=== PATIENT | female | born 1995 | race Hispanic/Latino ===

== ENCOUNTER 2024-04-06 06:57 | Day surgery (SDC) | payer OTHER, SELFPAY ==
[2024-04-06 07:23] VITALS: BMI 39.1
[2024-04-06] MEDS ORDERED: Acetaminophen 500 MG TAB PO PRN (07:42)
[2024-04-06 08:14] LABS: #Basophils 0.01 10x3/uL (0.0-0.2); #Eosinophils 0.02 10x3/uL (0.0-0.5); #Neutrophils 8.43 10x3/uL (1.5-8.4); %Basophils 0.1 % (0.0-2.0); %Eosinophils 0.2 % (0.0-6.0); %Lymphocytes 16.9 % (18.0-47.0); %Monocytes 6.3 % (0.0-10.0); %Neutrophils 75.6 % (40.0-75.0); Hematocrit 36.2 % (34.9-44.5); Mean Corpuscular HGB CONC 33.1 g/dL (32.0-36.0); Mean Corpuscular Hemoglobin 29.7 pg (27.0-33.0); Mean Corpuscular Volume 89.6 fL (81.6-98.3); Platelet Count 225 10x3/uL (150-450); RBC Distribution Width 13.3 % (11.5-14.5); Red Blood Cell (RBC) Count 4.04 10x6/uL (3.90-5.03); White Blood Cell (WBC) Count 11.1 10x3/uL (3.5-10.5)
[2024-04-06 08:22] LABS: ALT (SGPT) 13 U/L (8-55); AST (SGOT) 15 U/L (5-34); Alkaline Phosphatase 50 U/L (40-110); Anion Gap 15 mmol/L (10-20); BUN (Urea Nitrogen) 4 mg/dL (7.0-18.7); Bilirubin, Total 0.2 mg/dL (0.2-1.2); Calc. Creatinine Clearance 233 mL/min (70-130); Carbon Dioxide 19 mmol/L (22-29); Chloride 108 mmol/L (98-107); Estimated GFR 126; Glucose 98 mg/dL (70-105); Sodium 138 mmol/L (136-145)
[2024-04-06 08:52] LABS: Creatinine, Urine 51.11 mg/dL (47-110); Protein, Urine Random Quant Less than 10 mg/dL (1-14)
== END 2024-04-06 10:40 ==
LOC: CSHLD/OP 06:57
PROVIDERS: ATTEND Student in an Organized Health Care Education/Training Program
DX: O99.891 Other specified diseases and conditions complicating pregnancy (principal); R03.0 Elevated blood-pressure reading, without diagnosis of hypertension; Z3A.26 26 weeks gestation of pregnancy; Z79.899 Other long term (current) drug therapy
CPT/HCPCS: 36415; 80053; 82570; 84156; 85025; 99283

== ENCOUNTER 2024-06-27 00:13 | Day surgery (SDC) | payer BC ==
[2024-06-27 01:05] VITALS: BMI 40.7
[2024-06-27] MEDS ORDERED: hydrALAZINE 20 MG/ML VIAL SLOW IVP PRN (01:17)
[2024-06-27] MEDS: Acetaminophen 500 MG TAB PO SCH (01:47)
[2024-06-27 01:55] LABS: Protein, Urine Random Quant Less than 10 mg/dL (1-14)
[2024-06-27 02:33] LABS: #Basophils Less than 0.03 10x3/uL (0.0-0.2); #Eosinophils Less than 0.03 10x3/uL (0.0-0.5); #Monocytes 0.92 10x3/uL (0.0-1.1); #Neutrophils 8.39 10x3/uL (1.5-8.4); %Basophils 0.2 % (0.0-2.0); %Eosinophils 0.2 % (0.0-6.0); %Lymphocytes 21.4 % (18.0-47.0); %Monocytes 7.7 % (0.0-10.0); Hematocrit 38.8 % (34.9-44.5); Hemoglobin 12.8 g/dL (12.0-15.5); Platelet Count 241 10x3/uL (150-450); RBC Distribution Width 13.9 % (11.5-14.5); Red Blood Cell (RBC) Count 4.41 10x6/uL (3.90-5.03); White Blood Cell (WBC) Count 11.97 10x3/uL (3.5-10.5)
[2024-06-27 02:46] LABS: ALT (SGPT) 17 U/L (8-55); AST (SGOT) 14 U/L (5-34); Albumin 3.3 g/dL (3.5-5.0); Alkaline Phosphatase 110 U/L (40-110); Anion Gap 15 mmol/L (10-20); BUN (Urea Nitrogen) 8 mg/dL (7.0-18.7); Bilirubin, Total 0.4 mg/dL (0.2-1.2); Calc. Creatinine Clearance 239 mL/min (70-130); Calcium 9.5 mg/dL (7.8-10.44); Carbon Dioxide 18 mmol/L (22-29); Chloride 108 mmol/L (98-107); Estimated GFR 125; Globulin 3.8 g/dL (2.4-3.5); Glucose 82 mg/dL (70-105); Protein, Total 7.1 g/dL (6.0-8.3); Sodium 137 mmol/L (136-145)
== END 2024-06-27 02:55 | disposition home or self-care (01) ==
LOC: CSHERS 00:13 → CSHLD/OP 00:35
PROVIDERS: ATTEND Student in an Organized Health Care Education/Training Program
DX: O10.913 Unspecified pre-existing hypertension complicating pregnancy, third trimester (principal); O99.343 Other mental disorders complicating pregnancy, third trimester; F41.9 Anxiety disorder, unspecified; O41.03X0 Oligohydramnios, third trimester, not applicable or unspecified; O14.13 Severe pre-eclampsia, third trimester; O99.820 Streptococcus B carrier state complicating pregnancy; O36.0130 Maternal care for anti-D [Rh] antibodies, third trimester, not applicable or unspecified; Z67.30 Type AB blood, Rh positive; Z3A.37 37 weeks gestation of pregnancy
CPT/HCPCS: 80053; 82570; 84156; 85025; 99284

== ENCOUNTER 2024-06-28 17:10 | Inpatient (IN) | payer BC ==
[~2024-06-28 17:10] MED LIST: Bupivacaine 0.25% HCL 30 ML VIAL ONE
[2024-06-28 17:31] VITALS: BMI 40.7
[2024-06-28] MEDS ORDERED: Ibuprofen 800 MG TAB PO PRN (18:15)
[2024-06-28] MEDS ORDERED: Carboprost 250 MCG/ML AMP IM PRN (18:15)
[2024-06-28] MEDS ORDERED: Zolpidem Tartrate 5 MG TAB PO PRN (18:15)
[2024-06-28] MEDS ORDERED: Ondansetron PF 4 MG/2 ML Vial IVP PRN (18:15)
[2024-06-28] MEDS ORDERED: Oxytocin 30 units/NS 500 ML 500 ML IV SCH (18:15)
[2024-06-28] MEDS ORDERED: Promethazine HCl 25 MG/ML VIAL IM PRN (18:15)
[2024-06-28] MEDS ORDERED: Diphenoxylate HCl/Atropine Tablet PO PRN (18:15)
[2024-06-28] MEDS ORDERED: fentaNYL 50 mcg/mL 1 mL Vial SLOW IVP PRN (18:15)
[2024-06-28] MEDS ORDERED: Lidocaine 1% (PF) 30 ML VIAL SC PRN (18:15)
[2024-06-28] MEDS ORDERED: HYDROcodone/Acetaminophen 5/325 mg Tablet PO PRN (18:15)
[2024-06-28] MEDS ORDERED: Lactated Ringer's 1,000 ML IV SCH (18:15)
[2024-06-28] MEDS ORDERED: hydrALAZINE 20 MG/ML VIAL SLOW IVP PRN (18:15)
[2024-06-28 19:00] LABS: Hematocrit 36.9 % (34.9-44.5); Hemoglobin 12.5 g/dL (12.0-15.5); Mean Corpuscular HGB CONC 33.9 g/dL (32.0-36.0); Mean Corpuscular Hemoglobin 29.5 pg (27.0-33.0); Platelet Count 234 10x3/uL (150-450); RBC Distribution Width 14.2 % (11.5-14.5); Red Blood Cell (RBC) Count 4.24 10x6/uL (3.90-5.03); White Blood Cell (WBC) Count 10.18 10x3/uL (3.5-10.5)
[2024-06-28 19:33] LABS: ALT (SGPT) 17 U/L (8-55); AST (SGOT) 17 U/L (5-34); Albumin 3.1 g/dL (3.5-5.0); Alkaline Phosphatase 104 U/L (40-110); Anion Gap 14 mmol/L (10-20); BUN (Urea Nitrogen) 8 mg/dL (7.0-18.7); Bilirubin, Total 0.5 mg/dL (0.2-1.2); Calc. Creatinine Clearance 239 mL/min (70-130); Calcium 8.8 mg/dL (7.8-10.44); Carbon Dioxide 18 mmol/L (22-29); Chloride 106 mmol/L (98-107); Estimated GFR 125; Globulin 3.8 g/dL (2.4-3.5); Glucose 84 mg/dL (70-105); Potassium 4.2 mmol/L (3.5-5.1); Protein, Total 6.9 g/dL (6.0-8.3); Sodium 134 mmol/L (136-145)
[2024-06-28 19:42] LABS: Syphilis Antibody Nonreactive (Nonreactive); Syphilis Antibody Index 0.06 S/CO (<1.00 Non-Reactive)
[2024-06-28 19:43] LABS: HBsAg Index 0.23 S/CO (0-0.99); Hep B Surf Ag - L&D Non-Reactive S/CO (NonReactive)
[2024-06-28] MEDS: Misoprostol 100 MCG TAB VAG SCH (22:25)
[2024-06-28] MEDS: Acetaminophen 500 MG TAB PO PRN (22:36)
[2024-06-29] MEDS: Penicillin G Potassium 5 MILL.UNITS in Sodium Chloride 0.9% 100 ML IVPB SCH (14:14)
[2024-06-29] MEDS ORDERED: Promethazine HCl 25 MG/ML VIAL IM PRN (14:59)
[2024-06-29] MEDS ORDERED: ePHEDrine Sulfate 50 MG/10 ML VIAL SLOW IVP PRN (14:59)
[2024-06-29] MEDS ORDERED: Acetaminophen 325 MG TAB PO PRN (14:59)
[2024-06-29] MEDS ORDERED: Moisturizing Cream (Eucerin) 113 GM JAR TOP PRN (14:59)
[2024-06-29] MEDS ORDERED: diphenhydrAMINE 50 MG/ML VIAL IVP PRN (14:59)
[2024-06-29] MEDS ORDERED: Lactated Ringer's 500 ML IV PRN (14:59)
[2024-06-29] MEDS ORDERED: Naloxone HCl 0.4 mg/ml Vial IVP PRN ×2 (14:59)
[2024-06-29] MEDS ORDERED: Ondansetron PF 4 MG/2 ML Vial IVP PRN (14:59)
[2024-06-29] MEDS ORDERED: Communication Order-Pharmacy FS SCH (15:00)
[2024-06-29] MEDS ORDERED: fentaNYL 2 mcg/Ropivacaine 0.2% Epidural 100 ML CADD EPIDURAL SCH (15:00)
[2024-06-29] MEDS: Oxytocin 30 units/NS 500 ML 500 ML IV SCH (15:15)
[2024-06-29] MEDS: Penicillin G 2.5 MILL.units 2.5 MILL.UNITS in Premix 1 BAG IVPB SCH (17:47)
[2024-06-29] MEDS: Misoprostol 200 MCG TAB PR PRN (18:17)
[2024-06-29] MEDS: Methylergonovine 0.2 MG/ML VIAL IM PRN (18:17)
[2024-06-29] MEDS ORDERED: hydrALAZINE 20 MG/ML VIAL SLOW IVP PRN (18:23)
[2024-06-29] MEDS ORDERED: Milk Of Magnesia 30 ML UDCUP PO PRN (18:23)
[2024-06-29] MEDS ORDERED: Bisacodyl 10 MG SUPP PR PRN (18:23)
[2024-06-29 18:37] LABS: Analyzer IN Cardio CS NICU; Critical Notified By: clumpkins rt; RapidComm Collect By LD RN
[2024-06-29 18:38] LABS: Analyzer IN Cardio CS NICU; Critical Notified By: clumpkins rt; RapidComm Collect By LD RN; pH (Cord, venous) 7.375 (7.250-7.350)
[2024-06-29] MEDS: Docusate 100 MG CAP PO SCH (21:30)
[2024-06-29] MEDS: Ibuprofen 800 MG TAB PO SCH (21:30)
[2024-06-30] MEDS: Ferrous Sulfate 325 MG TAB PO SCH (14:15)
[2024-07-01] MEDS: fentaNYL/Ropivacaine Epidural 100 ML ONE (07:33)
[2024-07-01] MEDS: Boostrix 0.5 ML (Tdap) VIAL (>/=7 yrs of age) IM ONE (07:33)
[2024-07-01] MEDS: Penicillin G Potassium 5 MILL.UNITS VIAL ONE (07:33)
[2024-07-01] MEDS: hydrALAZINE 20 MG/ML VIAL SLOW IVP SCH (08:22)
[2024-07-01] MEDS: busPIRone HCl 5 MG TAB PO SCH (08:54)
[2024-07-01] MEDS ORDERED: Calcium Gluc 4.6 MEQ/10 ML (100 MG/ML) SLOW IVP PRN (09:15)
[2024-07-01] MEDS ORDERED: Lorazepam 2 MG/ML VIAL SLOW IVP PRN (09:15)
[2024-07-01] MEDS: Magnesium Sulfate 20 gm/500 ml 20 GM/500 ML BAG IVPB SCH (10:15)
[2024-07-01] MEDS: NIFEdipine XL 30 MG ER.TAB PO SCH ×2 (10:29→20:08)
[2024-07-01] MEDS: Lactated Ringer's 1,000 ML IV SCH (10:33)
[2024-07-01 13:44] LABS: #Basophils Less than 0.03 10x3/uL (0.0-0.2); #Eosinophils 0.04 10x3/uL (0.0-0.5); #Monocytes 0.52 10x3/uL (0.0-1.1); #Neutrophils 6.34 10x3/uL (1.5-8.4); %Basophils 0.2 % (0.0-2.0); %Eosinophils 0.5 % (0.0-6.0); %Lymphocytes 17.5 % (18.0-47.0); %Monocytes 6.2 % (0.0-10.0); Hematocrit 38.3 % (34.9-44.5); Hemoglobin 12.5 g/dL (12.0-15.5); Mean Corpuscular HGB CONC 32.6 g/dL (32.0-36.0); Mean Corpuscular Hemoglobin 28.8 pg (27.0-33.0); Mean Corpuscular Volume 88.2 fL (81.6-98.3); Mean Platelet Volume 10.6 fL (7.4-10.4); Platelet Count 240 10x3/uL (150-450); RBC Distribution Width 14.1 % (11.5-14.5); Red Blood Cell (RBC) Count 4.34 10x6/uL (3.90-5.03); White Blood Cell (WBC) Count 8.45 10x3/uL (3.5-10.5)
[2024-07-01 13:59] LABS: ALT (SGPT) 21 U/L (8-55); AST (SGOT) 23 U/L (5-34); Albumin 2.8 g/dL (3.5-5.0); Alkaline Phosphatase 77 U/L (40-110); Anion Gap 16 mmol/L (10-20); BUN (Urea Nitrogen) 5 mg/dL (7.0-18.7); Bilirubin, Total 0.4 mg/dL (0.2-1.2); Calc. Creatinine Clearance 247 mL/min (70-130); Calcium 8.4 mg/dL (7.8-10.44); Carbon Dioxide 19 mmol/L (22-29); Chloride 109 mmol/L (98-107); Estimated GFR 126; Glucose 112 mg/dL (70-105); Potassium 3.7 mmol/L (3.5-5.1); Protein, Total 6.8 g/dL (6.0-8.3); Sodium 140 mmol/L (136-145)
[2024-07-01 19:51] LABS: Magnesium 4.5 mg/dL (1.6-2.6)
[2024-07-01] MEDS: NIFEdipine XL 60 MG ER.TAB PO SCH (20:08)
[2024-07-01 22:03] LABS: Troponin I Less than 0.010 ng/mL (< 0.028)
[2024-07-01] MEDS: Lorazepam 2 MG/ML VIAL SLOW IVP SCH (22:05)
[2024-07-02] MEDS: NIFEdipine XL 30 MG ER.TAB PO SCH (09:23)
[2024-07-02] MEDS: Labetalol HCl 200 MG TAB PO SCH (15:59)
[2024-07-02] MEDS: NIFEdipine 10 MG CAP PO SCH (21:11)
[2024-07-03] MEDS: NIFEdipine XL 90 MG ER.TAB PO SCH (08:20)
[2024-07-03 16:09] VITALS: BP 126/89; TEMP 97.5
== END 2024-07-03 17:45 | disposition home or self-care (01) | DRG 807 ==
LOC: OBSVTOIN 17:10 → CSHLD 17:10 → CSHPP 06-29 20:25 → CSHLD 07-01 09:46 → CSHPED 07-02 11:45
PROVIDERS: ADMIT Student in an Organized Health Care Education/Training Program; ATTEND Student in an Organized Health Care Education/Training Program
PROC: 3E0P7VZ Introduction of Hormone into Female Reproductive, Via Natural or Artificial Opening (ICD-10-PCS; 2024-06-28)
PROC: 10907ZC Drainage of Amniotic Fluid, Therapeutic from Products of Conception, Via Natural or Artificial Opening (ICD-10-PCS; 2024-06-28)
PROC: 10E0XZZ Delivery of Products of Conception, External Approach (ICD-10-PCS; principal; 2024-06-29)
DX: O14.14 Severe pre-eclampsia complicating childbirth (principal); Z37.0 Single live birth; Z3A.38 38 weeks gestation of pregnancy; O99.824 Streptococcus B carrier state complicating childbirth; O99.214 Obesity complicating childbirth; E66.813 Obesity, class 3; O99.344 Other mental disorders complicating childbirth
CPT/HCPCS: 36415; 51702; 80053; 82805; 83735; 84484; 85025; 85027; 86780; 86850; 86900; 86901; 87340; 93005; 93010; J0360; J0665; J2060; J2210; J2540; J2590; J3475; J7120

== ENCOUNTER 2025-04-27 13:59 | Inpatient (IN) | payer BC ==
[2025-04-27 14:57] LABS: Glucose, Urine (Dipstick) Normal (Negative); Leukocyte Negative (Negative); Protein, Urine (Dipstick) 30 mg/dl (Neg-Trace); Specific Gravity, Urine 1.015 (1.005-1.030)
[2025-04-27] MEDS ORDERED: hydrALAZINE 20 MG/ML VIAL SLOW IVP PRN ×2 (14:58→15:20)
[2025-04-27 15:00] LABS: Fetal Membranes Rupture RUPTURE DETECTED (No Rupture)
[2025-04-27 15:05] LABS: Bacteria/HPF 2+ HPF (None Seen); CAUTI Indications for Culture Pregnancy
[2025-04-27 15:07] LABS: Urine Culture Reflex Yes Yes
[2025-04-27] MEDS ORDERED: Tranexamic Acid 1,000 MG/10 ML VIAL IVP PRN (15:20)
[2025-04-27] MEDS ORDERED: Lidocaine 1% (PF) 30 ML VIAL SC PRN (15:20)
[2025-04-27] MEDS ORDERED: Carboprost 250 MCG/ML AMP IM PRN (15:20)
[2025-04-27] MEDS ORDERED: Ondansetron PF 4 MG/2 ML Vial IVP PRN (15:20)
[2025-04-27] MEDS ORDERED: Diphenoxylate HCl/Atropine Tablet PO PRN (15:20)
[2025-04-27] MEDS ORDERED: Oxytocin 30 units/NS 500 ML 500 ML IV SCH ×2 (15:30)
[2025-04-27 16:21] LABS: Hematocrit 34.6 % (34.9-44.5); Hemoglobin 12.0 g/dL (12.0-15.5); Mean Corpuscular Hemoglobin 30.9 pg (27.0-33.0); Mean Corpuscular Volume 89.2 fL (81.6-98.3); Platelet Count 202 10x3/uL (150-450); Red Blood Cell (RBC) Count 3.88 10x6/uL (3.90-5.03); White Blood Cell (WBC) Count 10.23 10x3/uL (3.5-10.5)
[2025-04-27] MEDS: Penicillin G Potassium 5 MILL.UNITS in Sodium Chloride 0.9% 100 ML IVPB SCH (16:27)
[2025-04-27 16:38] VITALS: BMI 40.7
[2025-04-27 16:54] LABS: Hep B Surf Ag - L&D Non-Reactive S/CO (NonReactive)
[2025-04-27 16:55] LABS: Syphilis Antibody Index 0.08 S/CO (<1.00 Non-Reactive)
[2025-04-27] MEDS: Penicillin G 2.5 MILL.units 2.5 MILL.UNITS in Premix 1 BAG IVPB SCH (21:17)
[2025-04-27] MEDS: Acetaminophen 500 MG TAB PO SCH (21:33)
[2025-04-28] MEDS: fentaNYL/Ropivacaine Epidural 100 ML ONE (03:22)
[2025-04-28] MEDS ORDERED: Ondansetron PF 4 MG/2 ML Vial IVP PRN ×2 (03:29→04:33)
[2025-04-28] MEDS ORDERED: diphenhydrAMINE 50 MG/ML VIAL IVP PRN (03:29)
[2025-04-28] MEDS ORDERED: fentaNYL 2 mcg/Ropivacaine 0.2% Epidural 100 ML CADD EPIDURAL SCH (03:30)
[2025-04-28] MEDS ORDERED: Communication Order-Pharmacy FS SCH (03:30)
[2025-04-28] MEDS ORDERED: Methylergonovine 0.2 MG/ML VIAL IM PRN (04:33)
[2025-04-28] MEDS ORDERED: Milk Of Magnesia 30 ML UDCUP PO PRN (04:33)
[2025-04-28] MEDS ORDERED: Bisacodyl 10 MG SUPP PR PRN (04:33)
[2025-04-28] MEDS ORDERED: Preparation H Ointment 28 GM TUBE PR PRN (04:33)
[2025-04-28] MEDS ORDERED: hydrALAZINE 20 MG/ML VIAL SLOW IVP PRN (04:33)
[2025-04-28] MEDS ORDERED: Lanolin Ointment 7 GM TUBE TOP PRN (04:33)
[2025-04-28] MEDS ORDERED: diphenhydrAMINE 25 MG CAP PO PRN (04:33)
[2025-04-28] MEDS ORDERED: Oxytocin 30 units/NS 500 ML 500 ML IV SCH (04:45)
[2025-04-28 05:11] LABS: Analyzer IN Cardio CS NICU; Critical Notified By: CP.PH; RapidComm Collect By CBN; pH (Cord, venous) 7.438 (7.250-7.350)
[2025-04-28 05:13] LABS: Analyzer IN Cardio CS NICU; Critical Notified By: CP.PH; RapidComm Collect By CBN
[2025-04-28] MEDS: Ferrous Sulfate 325 MG TAB PO SCH (08:23)
[2025-04-28] MEDS: Ibuprofen 800 MG TAB PO SCH (09:18)
[2025-04-28] MEDS: Benzocaine-Menthol 82.5 ML CAN TOP PRN (09:19)
[2025-04-28 17:50] LABS: ALT (SGPT) 11 U/L (Less than 34); AST (SGOT) 18 U/L (11-34); Albumin 2.9 g/dL (3.1-4.5); Alkaline Phosphatase 63 U/L (40-110); Anion Gap 12 mmol/L (10-20); BUN (Urea Nitrogen) 7 mg/dL (7.0-18.7); Bilirubin, Total 0.5 mg/dL (0.3-1.2); Calc. Creatinine Clearance 300 mL/min (70-130); Calcium 8.4 mg/dL (7.8-10.44); Carbon Dioxide 17 mmol/L (22-29); Chloride 110 mmol/L (98-107); Globulin 3.6 g/dL (2.4-3.5); Glucose 80 mg/dL (70-105); Potassium 3.9 mmol/L (3.5-5.1); Sodium 135 mmol/L (136-145)
[2025-04-28 18:52] LABS: Protein, Urine Random Quant 55.0 mg/dL (1-14)
[2025-04-28 19:14] LABS: #Basophils 0.03 10x3/uL (0.0-0.2); #Eosinophils Less than 0.03 10x3/uL (0.0-0.5); #Monocytes 0.82 10x3/uL (0.0-1.1); #Neutrophils 8.69 10x3/uL (1.5-8.4); %Basophils 0.3 % (0.0-2.0); %Eosinophils 0.1 % (0.0-6.0); %Lymphocytes 16.3 % (18.0-47.0); %Monocytes 7.1 % (0.0-10.0); %Neutrophils 75.3 % (40.0-75.0); Hematocrit 35.2 % (34.9-44.5); Hemoglobin 12.0 g/dL (12.0-15.5); Mean Corpuscular Hemoglobin 30.2 pg (27.0-33.0); Mean Corpuscular Volume 88.7 fL (81.6-98.3); Platelet Count 215 10x3/uL (150-450); Red Blood Cell (RBC) Count 3.97 10x6/uL (3.90-5.03); White Blood Cell (WBC) Count 11.53 10x3/uL (3.5-10.5)
[2025-04-28 22:45] LABS: Group B Streptococcus by PCR DETECTED (NotDetected)
[2025-04-29] MEDS: NIFEdipine XL 30 MG ER.TAB PO SCH (14:29)
[2025-04-30] MEDS: NIFEdipine XL 30 MG ER.TAB PO SCH (07:56)
[2025-04-30 11:32] VITALS: BP 138/83; TEMP 97.8
[2025-04-30] MEDS: Sertraline 25 MG TAB PO SCH (12:14)
[2025-04-30] MEDS: Acetaminophen 325 MG TAB PO PRN (12:17)
== END 2025-04-30 18:45 | disposition home or self-care (01) | DRG 807 ==
LOC: CSHLD/OP 13:59 → CSHLD 15:23 → CSHPP 04-28 07:30
PROVIDERS: ADMIT Student in an Organized Health Care Education/Training Program; ATTEND Student in an Organized Health Care Education/Training Program
PROC: 10H07YZ Insertion of Other Device into Products of Conception, Via Natural or Artificial Opening (ICD-10-PCS; 2025-04-27)
PROC: 3E03329 Introduction of Other Anti-infective into Peripheral Vein, Percutaneous Approach (ICD-10-PCS; 2025-04-27)
PROC: 10E0XZZ Delivery of Products of Conception, External Approach (ICD-10-PCS; principal; 2025-04-28)
DX: O14.14 Severe pre-eclampsia complicating childbirth (principal); Z37.0 Single live birth; Z3A.34 34 weeks gestation of pregnancy; O42.013 Preterm premature rupture of membranes, onset of labor within 24 hours of rupture, third trimester; O76 Abnormality in fetal heart rate and rhythm complicating labor and delivery; O99.214 Obesity complicating childbirth; E66.813 Obesity, class 3; F41.9 Anxiety disorder, unspecified; O99.344 Other mental disorders complicating childbirth; Z79.82 Long term (current) use of aspirin
CPT/HCPCS: 36415; 51702; 80053; 81001; 82570; 82805; 84112; 84156; 85025; 85027; 86780; 86850; 86870; 86900; 86901; 86922; 87086; 87340; 87653; 99285; J2540

== ENCOUNTER 2025-05-17 14:06 | Emergency (ER) | payer BC ==
[2025-05-17 15:37] LABS: #Basophils Less than 0.03 10x3/uL (0.0-0.2); #Eosinophils 0.06 10x3/uL (0.0-0.5); #Monocytes 0.48 10x3/uL (0.0-1.1); #Neutrophils 5.21 10x3/uL (1.5-8.4); %Basophils 0.2 % (0.0-2.0); %Eosinophils 0.7 % (0.0-6.0); %Lymphocytes 32.0 % (18.0-47.0); %Monocytes 5.6 % (0.0-10.0); %Neutrophils 61.3 % (40.0-75.0); Hematocrit 45.0 % (34.9-44.5); Hemoglobin 15.4 g/dL (12.0-15.5); Mean Corpuscular Hemoglobin 30.1 pg (27.0-33.0); Mean Corpuscular Volume 88.1 fL (81.6-98.3); Platelet Count 249 10x3/uL (150-450); Red Blood Cell (RBC) Count 5.11 10x6/uL (3.90-5.03); White Blood Cell (WBC) Count 8.51 10x3/uL (3.5-10.5)
[2025-05-17 15:57] LABS: ALT (SGPT) 46 U/L (Less than 34); AST (SGOT) 37 U/L (11-34); Albumin 4.5 g/dL (3.1-4.5); Alkaline Phosphatase 68 U/L (40-110); Anion Gap 16 mmol/L (10-20); BUN (Urea Nitrogen) 13 mg/dL (7.0-18.7); Bilirubin, Total 0.6 mg/dL (0.3-1.2); Calc. Creatinine Clearance 0 mL/min (70-130); Calcium 9.6 mg/dL (7.8-10.44); Carbon Dioxide 22 mmol/L (22-29); Chloride 106 mmol/L (98-107); Globulin 3.7 g/dL (2.4-3.5); Glucose 97 mg/dL (70-105); Potassium 3.8 mmol/L (3.5-5.1); Sodium 140 mmol/L (136-145)
[2025-05-17 16:52] LABS: Glucose, Urine (Dipstick) Normal (Negative); Leukocyte Negative (Negative); Protein, Urine (Dipstick) Negative (Neg-Trace); Specific Gravity, Urine 1.005 (1.005-1.030)
[2025-05-17 17:30] LABS: Bacteria/HPF Rare-Few HPF (None Seen); CAUTI Indications for Culture Pelvic or flank pain; RBC/HPF 0-3 HPF (0-3); WBC/HPF 0-3 HPF (0-3)
[2025-05-17 17:31] LABS: Urine Culture Reflex No No
[2025-05-17 23:34] LABS: Protein, Urine Random Quant Less than 10 mg/dL (1-14)
== END 2025-05-17 20:38 | disposition home or self-care (01) ==
LOC: CSHERS 14:06
DX: O99.63 Diseases of the digestive system complicating the puerperium (principal); K80.20 Calculus of gallbladder without cholecystitis without obstruction; O16.5 Unspecified maternal hypertension, complicating the puerperium; O99.345 Other mental disorders complicating the puerperium; F41.9 Anxiety disorder, unspecified
CPT/HCPCS: 36415; 76705; 80053; 81001; 82570; 84156; 85025; 93005